=== PATIENT | female | born 1975 | race Hispanic/Latino ===

== ENCOUNTER 2024-07-11 17:23 | Emergency (ER) | payer BC ==
[~2024-07-11] VITALS: Ht 157.5 cm; Wt 82.6 kg
[2024-07-11 17:56] VITALS: PULSE 87; RESP 18; TEMP 97.7
[2024-07-11] MEDS ORDERED: PENICILLIN V P500 MG PO (18:44)
[2024-07-11 19:01] VITALS: BP 134/78; PULSE 68; RESP 18; TEMP 97.6; O2SAT 99
== END 2024-07-11 19:05 | disposition home or self-care (01) ==
LOC: ER 18:54
DX: K04.7 Periapical abscess without sinus (principal); S02.5XXA Fracture of tooth (traumatic), initial encounter for closed fracture; M06.9 Rheumatoid arthritis, unspecified; M79.7 Fibromyalgia
CPT/HCPCS: 99282

== ENCOUNTER 2024-10-19 16:48 | Emergency (ER) | payer SELFPAY ==
[~2024-10-19] VITALS: Ht 157.5 cm; Wt 82.6 kg
[~2024-10-19 16:48] MED LIST: PENICILLIN V P500 MG PO
[2024-10-19 17:00] VITALS: TEMP 99
[2024-10-19 18:03] LABS: STREPTOCOCCUS GRP A ANTIGEN NEGATIVE (NEGATIVE)
[2024-10-19 18:09] LABS: INFLUENZA A AG NEGATIVE (NEGATIVE); INFLUENZA B AG NEGATIVE (NEGATIVE)
[2024-10-19 18:10] LABS: CORONAVIRUS COVID-19 AG NEGATIVE (NEGATIVE)
[2024-10-19] MEDS ORDERED: VENTOLIN HFA18 GM INH (18:19)
[2024-10-19] MEDS ORDERED: AZITHROMYCIN250 MG PO (18:19)
[2024-10-19] MEDS ORDERED: PREDNISONE20 MG PO (18:19)
[2024-10-19 18:24] VITALS: PULSE 95; RESP 20; O2SAT 97
== END 2024-10-19 18:30 | disposition home or self-care (01) ==
LOC: ER 16:58
DX: R05.9 Cough, unspecified (principal); J06.9 Acute upper respiratory infection, unspecified; M06.9 Rheumatoid arthritis, unspecified; M79.7 Fibromyalgia; R53.81 Other malaise; Z11.52 Encounter for screening for COVID-19
CPT/HCPCS: 83518; 87070; 99283